=== PATIENT | male | born 1980 | race Caucasian/White ===

== ENCOUNTER 2017-07-08 07:20 | Emergency (ER) | payer BC ==
[2017-07-08] MEDS ORDERED: Tetan/Diph/Pertus SYR(Tdap)* 0.5 ML SYR(BOOSTRIX) use SYR IM ONE (07:26)
[2017-07-08 07:29] VITALS: BP 138/62
[2017-07-08] MEDS ORDERED: Lidocaine 2% 10 ML* VIAL INJ ONE (07:35)
[2017-07-08] MEDS ORDERED: Lidocaine 2% PF * 5 ML VIAL ONE (07:43)
--- NOTE | 2017-07-08 08:02 | RAD ---
INDICATION: Crush injury left second finger. TECHNIQUE: 2 views of the left hand were obtained. FINDINGS: There is focal soft tissue swelling and a soft tissue defect present adjacent to the proximal and middle phalanges of the second finger. There is also a punctate metallic density which projects over the dorsal medial soft tissues suggestive of a foreign body in or on the soft tissues. No fracture is seen. Joint spaces appear maintained. IMPRESSION: 1. SOFT TISSUE INJURY, NO FRACTURE IS SEEN. 2. POSSIBLE SMALL SUPERFICIAL PUNCTATE METALLIC FOREIGN BODY IN OR ON THE SOFT TISSUES.
--- NOTE | 2017-07-08 08:35 | UC ---
Skin Complaint HPI - HPI Summary HPI Summary: Crush injury while working on his truck this morning. Finger got crushed and skin laceration left index palmar and dorsal. No dm. There is pain with movement. - History of Current Complaint Chief Complaint: UCUpperExtremity Time Seen by Provider: 07/08/17 07:25 Stated Complaint: lft index finger injury Hx Obtained From: Patient Onset/Duration: Sudden Onset, Lasting Hours Skin Exposure Onset/Duration: Hours Ago Timing: Constant Onset Severity: Severe Current Severity: Moderate Pain Intensity: 1 Location: Discrete Character: Pain, Painful Aggravating Factor(s): Touch Alleviating Factor(s): Nothing Associated Signs & Symptoms: Positive: Numbness, Tenderness. Negative: Nausea, Vomiting, Weakness Related History: Trauma - Allergy/Home Medications Allergies/Adverse Reactions: Allergies Allergy/AdvReac Type Severity Reaction Status Date / Time No Known Allergies Allergy Verified 07/08/17 07:27 Review of Systems Skin: Other - lacerations. All Other Systems Reviewed And Are Negative: Yes PMH/Surg Hx/FS Hx/Imm Hx Previously Healthy: Yes - Surgical History Surgical History: None - Family History Known Family History: Positive: Other - no related skin disease. - Social History Occupation: Employed Full-time Lives: With Family Alcohol Use: Rare Substance Use Type: None Smoking Status (MU): Never Smoked Tobacco - Immunization History Most Recent Influenza Vaccination: Not the Season Most Recent Tetanus Shot: 2001 Physical Exam Triage Information Reviewed: Yes Appearance: Well-Appearing, No Pain Distress, Well-Nourished Vital Signs: Initial Vital Signs Temp 98.4 F 07/08/17 07:22 Pulse 58 07/08/17 07:22 Resp 18 07/08/17 07:22 BP 138/62 07/08/17 07:22 Pulse Ox 97 07/08/17 07:22 Vital Signs Reviewed: Yes Eyes: Positive: Conjunctiva Clear ENT: Positive: Normal ENT inspection Neck: Positive: Supple, Nontender. Negative: Nuchal Rigidity Respiratory: Positive: No respiratory distress, No accessory muscle use. Negative: Respiratory distress Cardiovascular: Positive: Brisk Capillary Refill Abdomen Description: Negative: Distended Musculoskeletal Exam: Other - finger flexion and extension intact rom and strength. Musculoskeletal: Positive: Strength Intact, ROM Intact, No Edema Neurological: Positive: Alert, Muscle Tone Normal. Negative: Abnormal Muscle Tone Psychological: Positive: Age Appropriate Behavior Skin Exam: Other - two lacerations of the left index 1.5cm on the dorsum and 2cm on the palmar aspect. Skin: Negative: rashes Laceration Repair - Laceration Repair 2 Description: Irregular Laceration Size After Repair: Length (cm) - dorsum 1.5cm and palmar 2cm. Modified For Repair: Yes - mild modification of macerated margins. Type Injection: Digital Anesthesia Used: 1.0% Lido Cleansing Completed Via Routine Prep: Yes Irrigation With Pressure Irrigation Device: Yes Closure Material: Sutures Closure Method: Single Layer Suture Of: Skin Suture Type: Other - ethilon. 5 sutures on the dorsum and 7 on the palmar. Wound inspected to base in a bloodless field and extensor tendon visualized and intact. Palmar wound was not as deep and tendon could not be visualized. Course/Dx - Course Course Of Treatment: wound care discussed in detail. he is aware that infection would be the worst complication. he agrees to return in 2 days for evaluation and then again in 10 days for sutures. - Diagnoses Provider Diagnoses: two lacerations, complicated. complex single layer closures. Left index finger. 1.5cm and 2 cm. Discharge - Sign-Out/Discharge Documenting (check all that apply): Discharge/Admit/Transfer - Discharge Plan Condition: Good Disposition: HOME Prescriptions: Amoxicillin/Clavulanate TAB* [Augmentin TAB 875*] 875 mg PO BID #10 tab Patient Education Materials: Care For Your Stitches (ED), Laceration (ED) Referrals: ELVI Will [Primary Care Provider] - Additional Instructions: return here in 2 days for inspection and 10 days for suture removal. - Billing Disposition and Condition Condition: GOOD Disposition: HOME
== END 2017-07-08 08:47 | disposition home or self-care (01) ==
LOC: UCCORT 07:20
DX: S61.211A Laceration without foreign body of left index finger without damage to nail, initial encounter (principal); X58.XXXA Exposure to other specified factors, initial encounter; Y93.89 Activity, other specified; Y92.009 Unspecified place in unspecified non-institutional (private) residence as the place of occurrence of the external cause; Z23 Encounter for immunization
CPT/HCPCS: 12001; 13131; 90471; 90715; 99202; G0463

== ENCOUNTER 2017-07-10 08:39 | Emergency (ER) | payer BC ==
[2017-07-10 09:01] VITALS: BP 107/70
--- NOTE | 2017-07-10 09:33 | UC ---
HPI Wound/Suture Re-check - HPI Summary HPI Summary: PT PRESENTS FOR WOUND RECHECK. WAS SEEN HERE 2 DAYS AGO AFTER A CRUSH INJURY TO HIS LEFT INDEX FINGER. HAD SUTURES PLACED. STATES HE HAS NOT WASHED IT SINCE THEN BUT HAS BEEN APPLYING COPIOUS AMOUNTS OF ABX OINTMENT. NO FEVER. PAIN IS IMPROVED TODAY. IS TAKING HIS ANTIBIOTICS PRESCRIBED. - History Of Current Complaint Chief Complaint: UCSkin Stated Complaint: STITCHES REMOVAL Time Seen by Provider: 07/10/17 09:05 Hx Obtained From: Patient Onset/Duration: Sudden Onset, Lasting Days, Still Present Severity: Moderate Pain Intensity: 0 Pain Scale Used: 0-10 Numeric - Allergies/Home Medications Allergies/Adverse Reactions: Allergies Allergy/AdvReac Type Severity Reaction Status Date / Time No Known Allergies Allergy Verified 07/10/17 09:02 PMH/Surg Hx/FS Hx/Imm Hx Previously Healthy: Yes - Surgical History Surgical History: None - Family History Known Family History: Positive: Other - no related skin disease. - Social History Alcohol Use: Rare Substance Use Type: None Smoking Status (MU): Never Smoked Tobacco - Immunization History Most Recent Influenza Vaccination: Not the Season Most Recent Tetanus Shot: 2018 Review of Systems Constitutional: Negative Skin: Other - LACERATION LEFT INDEX FINGER WITH SUTURES Respiratory: Negative Cardiovascular: Negative Gastrointestinal: Negative Musculoskeletal: Decreased ROM, Edema All Other Systems Reviewed And Are Negative: Yes Physical Exam Triage Information Reviewed: Yes Appearance: Well-Appearing, No Pain Distress, Well-Nourished Vital Signs: Initial Vital Signs Temp 99 F 07/10/17 08:53 Pulse 49 07/10/17 08:53 Resp 18 07/10/17 08:53 BP 107/70 07/10/17 08:53 Pulse Ox 99 07/10/17 08:53 Vital Signs Reviewed: Yes Eyes: Positive: Conjunctiva Clear ENT: Positive: Hearing grossly normal Neck: Positive: Supple Respiratory: Positive: No respiratory distress, No accessory muscle use Cardiovascular: Positive: Pulses Normal Abdomen Description: Positive: Soft Musculoskeletal: Positive: ROM Limited @ - LEFT INDEX FINGER, Edema @ - LEFT INDEX FINGER Neurological: Positive: Alert Psychological: Positive: Age Appropriate Behavior Skin: Positive: Other - LEFT INDEX FINGER LACERATION WITH SUTURES IN PLACE. WOUND EDGES WET, WHITE AND MACERATED. NO DRAINAGE. Course/Dx - Differential Dx - Laceration/Wound Provider Diagnoses: WOUND RECHECK Discharge - Sign-Out/Discharge Documenting (check all that apply): Discharge/Admit/Transfer - Discharge Plan Condition: Stable Disposition: HOME Referrals: ELVI Will [Primary Care Provider] - If Needed Additional Instructions: CLEANSE YOUR WOUND ONCE DAILY BY LETTING WARM SOAPY WATER RUN OVER IT. DO NOT SCRUB. DRY AND THEN ALLOW TO AIR DRY COMPLETELY BEFORE COVERING WITH A NONSTICK BANDAGE AND SOME GAUZE. DO NOT APPLY ANTIBIOTIC OINTMENT YOUR WOUND IS QUITE MACERATED AND THIS WILL MAKE THE CONDITION WORSE. CONTINUE YOUR ORAL ANTIBIOTICS PRESCRIBED. RETURN FOR SUTURE REMOVAL IN ABOUT 10 DAYS. RETURN FOR RECHECK SOONER IF YOU DEVELOP PURULENT DRAINAGE, SPREADING REDNESS OF THE SKIN, INCREASED PAIN, FEVER OR ANY OTHER CONCERNING SYMPTOMS. - Billing Disposition and Condition Condition: STABLE Disposition: HOME
== END 2017-07-10 10:15 | disposition home or self-care (01) ==
LOC: UCCORT 08:39
DX: S61.211D Laceration without foreign body of left index finger without damage to nail, subsequent encounter (principal); X58.XXXD Exposure to other specified factors, subsequent encounter
CPT/HCPCS: 99212; G0463

== ENCOUNTER 2017-07-21 08:44 | Emergency (ER) | payer BC ==
[2017-07-21 09:09] VITALS: BP 111/62
--- NOTE | 2017-07-21 09:21 | UC ---
HPI Wound/Suture Re-check - HPI Summary HPI Summary: suture removal left index finger laceration of the left index finger 13 days ago healing well, no redness, no swelling , no discharge - History Of Current Complaint Chief Complaint: UCUpperExtremity Stated Complaint: STITCH REMOVAL Time Seen by Provider: 07/21/17 08:58 Hx Obtained From: Patient Onset/Duration: Sudden Onset, Lasting Days - 13, Still Present Severity: Moderate Pain Intensity: 0 - Allergies/Home Medications Allergies/Adverse Reactions: Allergies Allergy/AdvReac Type Severity Reaction Status Date / Time No Known Allergies Allergy Verified 07/21/17 09:07 PMH/Surg Hx/FS Hx/Imm Hx Previously Healthy: Yes - Surgical History Surgical History: None - Family History Known Family History: Positive: Other - no related skin disease. Negative: Diabetes - Social History Alcohol Use: Rare Substance Use Type: None Smoking Status (MU): Never Smoked Tobacco - Immunization History Most Recent Influenza Vaccination: Not the Season Most Recent Tetanus Shot: 2017 Review of Systems Constitutional: Negative Skin: Negative Eyes: Negative ENT: Negative Is Patient Immunocompromised?: No All Other Systems Reviewed And Are Negative: Yes Physical Exam Triage Information Reviewed: Yes Appearance: Well-Appearing, No Pain Distress, Well-Nourished Vital Signs: Initial Vital Signs Temp 97.8 F 07/21/17 09:03 Pulse 52 07/21/17 09:03 Resp 17 07/21/17 09:03 BP 111/62 07/21/17 09:03 Pulse Ox 98 07/21/17 09:03 Vital Signs Reviewed: Yes Eye Exam: Normal Eyes: Positive: Conjunctiva Clear ENT: Positive: Normal ENT inspection, Hearing grossly normal, Pharynx normal Neck: Positive: Supple, Nontender, No Lymphadenopathy Respiratory: Positive: Chest non-tender, Lungs clear, Normal breath sounds Cardiovascular: Positive: RRR, No Murmur, Pulses Normal Skin: Positive: Other - laceration left index finger , 12 sutures intaces, laceration is healing well, no sing of infection sutures were removed Course/Dx - Differential Dx - Laceration/Wound Provider Diagnoses: suture removal. left index finger laceration Discharge - Sign-Out/Discharge Documenting (check all that apply): Discharge/Admit/Transfer - Discharge Plan Condition: Stable Disposition: HOME Patient Education Materials: Stitches Removal (ED) Referrals: Arianne Ellis PA [Primary Care Provider] - If Needed - Billing Disposition and Condition Condition: STABLE Disposition: HOME
== END 2017-07-21 09:26 | disposition home or self-care (01) ==
LOC: UCCORT 08:44
DX: Z48.02 Encounter for removal of sutures (principal)